=== PATIENT | male | born 1940 | race Two or more races ===

== ENCOUNTER → 2019-11-04 | Outpatient (CLI) | payer OTHER | END | disposition home or self-care (01) | LOC: MRI 11-02 10:45 | DX: F01.50 Vascular dementia, unspecified severity, without behavioral disturbance, psychotic disturbance, mood disturbance, and anxiety (principal); G30.1 Alzheimer's disease with late onset | CPT/HCPCS: 70551 ==

== ENCOUNTER 2019-12-31 09:27 | Outpatient (CLI) | payer OTHER | END 2019-12-31 09:45 | disposition home or self-care (01) | LOC: NUCLEAR 09:27 | DX: I20.1 Angina pectoris with documented spasm (principal) | CPT/HCPCS: 78452; 93017; A9500; J0153 ==

== ENCOUNTER 2020-01-11 12:52 | Outpatient (CLI) | payer OTHER | END 2020-01-11 13:01 | disposition home or self-care (01) | LOC: MRI 12:52 | DX: M12.88 Other specific arthropathies, not elsewhere classified, other specified site (principal); M46.47 Discitis, unspecified, lumbosacral region | CPT/HCPCS: 72141 ==

== ENCOUNTER 2020-02-10 11:33 | Outpatient (CLI) | payer OTHER | END 2020-02-10 11:37 | disposition home or self-care (01) | LOC: RAD 11:33 | DX: R07.89 Other chest pain (principal) ==

== ENCOUNTER 2020-06-23 10:00 | Inpatient (IN) | payer OTHER ==
[~2020-06-23] VITALS: Ht 175.3 cm; Wt 73.9 kg
[2020-06-23] MEDS ORDERED: TELMISARTAN-HC1 EAC1 PO (11:12)
[2020-06-23] MEDS ORDERED: GLIPIZIDE XL10 MG PO (11:13)
[2020-06-23] MEDS ORDERED: METFORMIN HCL1000 M2 PO (11:13)
[2020-06-23] MEDS ORDERED: SIMVASTATIN40 MG PO (11:13)
[2020-06-27] MEDS ORDERED: DIAZEPAM5 MG PO (12:54)
[2020-06-27] MEDS ORDERED: COLACE100 MG PO (12:54)
[2020-06-27] MEDS ORDERED: PERCOCET 5-3251 EACH PO (12:54)
== END 2020-06-28 13:37 | disposition home or self-care (01) | DRG 473 ==
LOC: SURH 06-27 06:00 → O/R 06-27 06:00 → SURH 06-27 10:00
PROVIDERS: ADMIT Orthopaedic Surgery Orthopaedic Surgery of the Spine; ATTEND Orthopaedic Surgery Orthopaedic Surgery of the Spine
PROC: 0RT30ZZ Resection of Cervical Vertebral Disc, Open Approach (ICD-10-PCS; 2020-06-27)
PROC: 0RG20A0 Fusion of 2 or more Cervical Vertebral Joints with Interbody Fusion Device, Anterior Approach, Anterior Column, Open Approach (ICD-10-PCS; principal; 2020-06-27 16:00)
DX: M50.021 Cervical disc disorder at C4-C5 level with myelopathy (principal); M48.02 Spinal stenosis, cervical region

== ENCOUNTER 2020-10-04 15:21 | Emergency (ER) | payer OTHER ==
[~2020-10-04] VITALS: Ht 175.3 cm; Wt 77.1 kg
[~2020-10-04 15:21] MED LIST: COLACE100 MG PO; DIAZEPAM5 MG PO; GLIPIZIDE XL10 MG PO; METFORMIN HCL1000 M2 PO; PERCOCET 5-3251 EACH PO; SIMVASTATIN40 MG PO; TELMISARTAN-HC1 EAC1 PO
== END 2020-10-04 20:57 | disposition home or self-care (01) ==
LOC: ER 15:21
DX: N39.0 Urinary tract infection, site not specified (principal); B96.1 Klebsiella pneumoniae [K. pneumoniae] as the cause of diseases classified elsewhere; R31.29 Other microscopic hematuria; Z03.818 Encounter for observation for suspected exposure to other biological agents ruled out; R50.9 Fever, unspecified

== ENCOUNTER 2021-03-15 14:53 | Outpatient (CLI) | payer OTHER | END 2021-03-15 16:10 | disposition home or self-care (01) | LOC: OFIC 805 14:53 | PROVIDERS: ATTEND Otolaryngology Otology & Neurotology | DX: H69.81 Other specified disorders of Eustachian tube, right ear (principal); R13.19 Other dysphagia; H61.21 Impacted cerumen, right ear ==

== ENCOUNTER 2021-08-14 10:54 | Outpatient (CLI) | payer OTHER | END 2021-08-14 10:56 | disposition home or self-care (01) | LOC: NUCLEAR 10:54 | PROVIDERS: ATTEND Internal Medicine Cardiovascular Disease | DX: I63.50 Cerebral infarction due to unspecified occlusion or stenosis of unspecified cerebral artery (principal); I25.10 Atherosclerotic heart disease of native coronary artery without angina pectoris ==

== ENCOUNTER 2023-12-08 21:13 | Emergency (ER) | payer OTHER ==
[~2023-12-08] VITALS: Ht 172.7 cm; Wt 73.5 kg
[2023-12-08 23:04] LABS: HEMATOCRIT 43.1 % (39.0-48.0); HEMOGLOBIN 14.6 g/dL (13-16.00); MEAN CELL VOLUME 93.2 fL (80.0-100.00); MEAN CORPUSCULAR HEMOGLOBIN 31.7 pg (27.00-32.0); PLATELET COUNT 170 K/uL (150-450); RED BLOOD COUNT 4.62 M/uL (4.00-6.00); RED CELL DISTRIBUTION WIDTH 13.6 % (11.5-14.5)
[2023-12-08 23:19] LABS: CALCIUM 8.9 mg/dL (8.5-10.1); CREATININE SERUM 0.78 mg/dL (0.70-1.30); GFR 94.83; POTASSIUM 3.86 mEq/L (3.5-5.1)
[2023-12-08 23:23] LABS: PH,URINE 7.5 (5.0-8.0); URINE APPEARANCE Cloudy; URINE BILIRRUBIN Negative (NEGATIVE); URINE BLOOD Negative; URINE COLOR Dark Yellow; URINE GLUCOSE Negative (NEGATIVE); URINE LEUKOCYTE Negative; URINE NITRATE Negative; URINE PROTEIN Negative (NEGATIVE)
[2023-12-08 23:26] LABS: URINE BACTERIA 52.8 uL (0.0-1933); URINE RBC 3.4 uL (0.0-20.8); URINE WBC 2.6 uL (0.0-23.2)
[2023-12-08 23:27] LABS: URINE EPITHELIAL CELLS 0.9 uL (0.0-38.8)
== END 2023-12-09 10:45 ==
LOC: ER 21:13
PROVIDERS: Emergency Medicine
DX: E86.0 Dehydration (principal); G30.8 Other Alzheimer's disease; F02.80 Dementia in other diseases classified elsewhere, unspecified severity, without behavioral disturbance, psychotic disturbance, mood disturbance, and anxiety; E11.9 Type 2 diabetes mellitus without complications; Z79.84 Long term (current) use of oral hypoglycemic drugs; I10 Essential (primary) hypertension
CPT/HCPCS: 36415; 70450; 71045; 93005; 96365; 96366; 99284; J1200; J7030

== ENCOUNTER 2023-12-11 17:54 | Emergency (ER) | payer OTHER ==
[~2023-12-11] VITALS: Ht 177.8 cm; Wt 81.6 kg
[2023-12-11 20:19] LABS: HEMOGLOBIN 15.4 g/dL (13-16.00); MEAN CORPUSCULAR HEMOGLOBIN 31.2 pg (27.00-32.0); MEAN CORPUSCULAR HGB CONC 34.3 g/dl (32.0-36.0); PLATELET COUNT 198 K/uL (150-450); RED BLOOD COUNT 4.95 M/uL (4.00-6.00); RED CELL DISTRIBUTION WIDTH 13.7 % (11.5-14.5)
[2023-12-11 20:45] LABS: ALBUMIN 4.1 gm/dL (3.4-5.0); BILIRUBIN TOTAL 1.19 mg/dL (0.3-1.2); CALCIUM 9.3 mg/dL (8.5-10.1); CREATININE SERUM 0.9 mg/dL (0.70-1.30); GFR 80.39; GLOBULINA 3.4 G/DL (2.4-3.5); POTASSIUM 3.65 mEq/L (3.5-5.1); TOTAL PROTEIN 7.5 gm/dL (6.4-8.2)
== END 2023-12-12 08:27 ==
LOC: ER 17:54
PROVIDERS: General Practice
DX: G30.8 Other Alzheimer's disease (principal); F02.811 Dementia in other diseases classified elsewhere, unspecified severity, with agitation; E86.0 Dehydration; I10 Essential (primary) hypertension; Z20.822 Contact with and (suspected) exposure to COVID-19
CPT/HCPCS: 36415; 70450; 96365; 96372; 99284; J1200; J1630; J3490